=== PATIENT | female | born 1940 | race Caucasian/White ===

== ENCOUNTER 2016-09-22 12:13 | Outpatient (CLI) | payer MEDICARE ==
[2014-05-29 11:20] VITALS: BP 151/62
== END 2016-09-22 12:14 ==
LOC: CARD 12:13
PROVIDERS: ATTEND Nurse Practitioner
DX: E03.9 Hypothyroidism, unspecified (principal); F17.210 Nicotine dependence, cigarettes, uncomplicated; D64.9 Anemia, unspecified; E78.5 Hyperlipidemia, unspecified; I10 Essential (primary) hypertension; I35.0 Nonrheumatic aortic (valve) stenosis
CPT/HCPCS: 93005; G0463

== ENCOUNTER 2016-10-13 08:13 | Outpatient (CLI) | payer MEDICARE ==
[2014-05-29 11:20] VITALS: BP 151/62
[2016-10-13 08:37] LABS: BASOPHILS % 0.8 (0.0-1.5); EOSINOPHILS % 4.2 % (0.0-6.8); MEAN CORPUSCULAR HEMOGLOBIN 25.1 pg (28.0-34.0); MEAN CORPUSCULAR VOLUME 78.2 fl (80.0-100.0); MONOCYTES % 5.4 % (0.0-11.0); NEUTROPHILS # 5.3 # k/uL (1.4-7.7)
[2016-10-13 08:59] LABS: eGFR (African) > 60; eGFR (Non-African) > 60
== END 2016-10-13 08:14 ==
LOC: LAB 08:13
PROVIDERS: ATTEND Internal Medicine Cardiovascular Disease
DX: I10 Essential (primary) hypertension (principal); I35.1 Nonrheumatic aortic (valve) insufficiency; E78.00 Pure hypercholesterolemia, unspecified; R07.2 Precordial pain
CPT/HCPCS: 36415; 80048; 85025

== ENCOUNTER 2016-10-13 11:55 | Inpatient (IN) | payer MEDICARE ==
--- NOTE | 2016-10-13 14:16 | ED Physician Documentation ---
General Adult - HISTORIAN Historian: patient - HPI Stated Complaint: low sodium Chief Complaint: General Adult Additional Information: Told to come in by donya snow of sodium of 116. Asymptomatic. Onset: minutes Timing: still present Severity: moderate Modifying Factors: hemochromatosis Context: chronic medical issues Quality: moderate Further Comments: no - ROS CONST: weakness, other (fatigue) EYES/ENT: none CVS/RESP: none GI/: none MS/SKIN/LYMPH: none NEURO/PSYCH: other (fatigue) - PAST HX Past History: other (hypothyroidism, hematomachrosis, fe deficiency anemia, hyperlipidemia, htn, ) Other History: other (mitral regurgitation) Surgeries/Procedures: other (back surgery, breast surgery, hyst, appy, foot surgery, endoscopy, shoulder surgery) Immunizations: referred to PCP Allergies/Adverse Reactions: Allergies Allergy/AdvReac Type Severity Reaction Status Date / Time No Known Allergies Allergy Verified 10/13/16 12:25 Home Medications: Ambulatory Orders Medication Instructions Recorded Aspirin [Arie] 325 mg PO DAILY 10/13/16 Omeprazole [Omeprazole] 20 mg PO BID 10/13/16 - SOCIAL HX Smoking History: cigarettes Alcohol Use: none Drug Use: none - FAMILY HX Family History: No - VITAL SIGNS Vital Signs: Vital Signs Temp Pulse Resp BP Pulse Ox 97.9 F 86 19 131/47 98 10/13/16 12:30 10/13/16 13:02 10/13/16 12:30 10/13/16 12:30 10/13/16 12:52 - REVIEWED ASSESSMENTS Nursing Assessment Reviewed: Yes Vitals Reviewed: Yes Progress - Results/Orders Results/Orders: pt/ptt/inr, ekg ordered in addition to cbc and cmp already done this am - Progress Progress: pt. stable entire time in er Critical Care Note - Critical Care Note Total Time (mins): 0 ED Results Lab/Radiology - Lab Results Lab Results: Lab Results 10/13/16 12:55 PT 11.0 Seconds Seconds (9.7-11.5) INR 1.0 (0.9-1.1) APTT 28.3 Seconds Seconds (24.5-32.8) - Radiology Radiology Impressions: cxr deferred to admission orders - Orders Orders: ED Orders Category Date Time Status Counter Pocket Sewer [Telemetry] Q30M Care 10/13/16 12:56 Inactive Continuous EKG monitoring Q30M Care 10/13/16 13:02 Active Continuous Pulse Oximetry Q1H Care 10/13/16 12:52 Active Saline Lock [Remove IV/Saline Lock] .PRN Care 10/13/16 12:58 Active Saline Lock [Remove IV/Saline Lock] 1T Care 10/13/16 12:51 Completed Telemetry NOW Care 10/13/16 12:52 Inactive PT-INR Routine Lab 10/13/16 12:55 Completed PTT Routine Lab 10/13/16 12:55 Completed EKG WITH COMPARISON Routine Ther 10/13/16 Ordered EKG WITH COMPARISON Routine Ther 10/13/16 Stop Req Transfer Routine Transfer 10/13/16 Ordered General Adult Physical Exam - PHYSICAL EXAM GENERAL APPEARANCE: no distress EENT: eye inspection normal, ENT inspection normal, pharynx normal, no signs of dehydration, CHRIS NECK: normal inspection, thyroid normal, supple RESPIRATORY: no resp distress, chest non-tender, breath sounds normal CVS: reg rate & rhythm, heart sounds normal, equal pulses ABDOMEN: soft, no organomegaly, normal bowel sounds, no abdominal bruit, no distension, non-tender BACK: normal inspection, no CVA tenderness SKIN: warm/dry, normal color EXTREMITIES: non-tender, normal range of motion, no evidence of injury, no edema NEURO: oriented X3, CN's nml as tested, motor nml, sensation nml, mood/affect nml, cognition normal Discharge Clincal Impression: Hyponatremia Home Medications: Ambulatory Orders Aspirin [Arie] 325 mg PO DAILY 10/13/16 Omeprazole [Omeprazole] 20 mg PO BID 10/13/16 Comments: Case discussed with Dr. Aguilar who accepts pt. Condition: Stable Disposition: ADMITTED INPATIENT Decision to Admit: [id number] Decision Time: 13:30
--- NOTE | 2016-10-13 16:00 | History and Physical Report ---
History of Present Illnes - History of Present Illness Reason for Visit: hyponatremia History of Present Illness: Patient is a 76-year-old white female who had some bloodwork drawn on the day of admission ordered by her delivery sales worker. Patient sodium level came back extremely low at 116. Patient was advised to come to the emergency room. Patient was subsequently admitted to the hospital for further care and treatment of her hyponatremia. - Past Medical History Cardiac: HTN Heme/Onc: Hemochromatosis Psych: Depression Endocrine: Diabetes (type 2), Hypothyroidism Dermatology: Other - Past Surgical History Past Surgical History: Cataract Removal (OU), Other (Left rotator cuff repair, foot surgery) - Past Family History Mother Family History: Cancer (lymphoma), (62yo) Father Family History: (88yo), Other (Parkinson's disease) Sister 1 Family History: Other (epilepsy) Brother 1 Family History: (accident) Brother 2 Family History: None - Past Social History Smoke: No, Quit Alcohol: None Drugs: None Lives: With Family Domestic Violence: Negative - Health Maintenance Health Maintenance: Cholesterol, Influenza Vaccine, Pneumococcal Vaccine (2008) , Mammogram (2015), Colonoscopy (2016) Influenza Vaccine: Current for this Influenza Season Pneumonia Vaccine: Yes (Needs prevnar 13) Resuscitation Status: full code - Unable to Obtain History Unable to Obtain: No Review of Systems - Review of Systems Constitutional: Weakness, Malaise. negative: Fever, Chills Eyes: negative: pain, vision change, eyelid inflammation ENT: negative: Ear Pain, Ear Discharge Respiratory: negative: Cough, Dry, Shortness of Breath, Hemoptysis, SOB with Excertion, Pleuritic Pain, Sputum, Wheezing Cardiovascular: negative: Chest Pain, Palpitations, Orthopnea, Paroxysmal Noc. Dyspnea, Light Headedness Gastrointestinal: negative: Nausea, Vomiting, Abdominal Pain, Diarrhea, Constipation, Melena, Hematochezia Genitourinary: negative: Dysuria, Frequency, Incontinence Musculoskeletal: Neck Pain Skin: negative: Rash, Lesions Neurological: negative: Weakness, Numbness, Incoordination, Change in Speech, Confusion - Medications/Allergies Allergies/Adverse Reactions: Allergies Allergy/AdvReac Type Severity Reaction Status Date / Time No Known Allergies Allergy Verified 10/13/16 12:25 Home Medications: Home Medications Aspirin [Arie] 325 mg PO DAILY 10/13/16 Omeprazole 20 mg PO BID 10/13/16 Exam - Exam Vital Signs: Vital Signs (72 hours) 10/13/16 14:17 Temperature 97.9 F Pulse Rate [ 80 Pulse ox] Respiratory 18 Rate Blood Pressure 118/52 [Left Arm] O2 Sat by Pulse 97 Oximetry General: Alert, Oriented to Person, Oriented to Place, Oriented to Time, Cooperative, Obese HEENT: Atraumatic, PERRLA, EOMI, Mouth Mucous membr. moist/[place], Nose Mucous membr. moist/[place], Edentulous Neck: Normal Range of Motion Carotids: WNL Thyroid: WNL Lungs: Clear to auscultation, Normal air movement, Speaks full Sentences Cardiovascular: Regular rate, Normal S1, Normal S2, No murmurs Abdomen: Normal bowel sounds, Soft, No tenderness, No hepatospenomegaly, No masses Integumentary: Normal, [place], Warm, Dry Extremities: No clubbing, No cyanosis, No edema, Normal pulses, No tenderness/ swelling Neurological: Normal gait, Normal speech, Strength Equal Bilat, Normal tone, Sensation intact, Cranial nerves 3-12 NL, Reflexes 2+ Psych/Mental Status: Mental status NL, Mood NL, Appropriate Affect, Intact Judgment Assessment/Plan - Assessment/Plan (1) Hyponatremia Status: Acute Plan: will start NS IV and lasix. Will moitor Na level, Will start fluid restriciton (2) Hemochromatosis Status: Acute Assessment: stable (3) Essential hypertension Status: Acute Assessment: continue with home meds (4) Diabetes type 2, controlled Status: Chronic Qualifiers: Diabetes mellitus complication status: without complication Assessment: continue with home meds VTE Assessment - RISK FACTOR SCORE VTE RISK FACTOR SCORES: AGE OVER 60 YEARS, ANTICIPATED BED CONFINEMENT OR IMMOBILIZATION > 24 HOURS - RISK VTE MODERATE RISK: SCORE OF 2 (RISK PROXIMAL DVT 2-4%) PROPHYAXIS NEEDED
[2016-10-13] MEDS ORDERED: ATORVASTATIN CALCIUM 80 MG TABLET PO ONE (16:24)
[2016-10-13] MEDS ORDERED: 0.9 % SODIUM CHLORIDE 1,000 ML IV ONE (16:24)
[2016-10-13] MEDS: 0.9 % SODIUM CHLORIDE 1,000 ML IV SCH (16:30)
[2016-10-13] MEDS: ENOXAPARIN SODIUM 30 MG/0.3 ML DISP.SYRIN SQ SCH (16:30)
[2016-10-13 17:12] VITALS: BMI 29.0
[2016-10-13 20:10] LABS: APPEARANCE,URINE CLEAR (CLEAR); COLOR,URINE YELLOW (YELLOW)
[2016-10-13] MEDS: DIAZEPAM 5 MG TABLET PO PRN (20:10)
[2016-10-13 20:11] LABS: OCCULT BLOOD,URINE INTACT (NEGATIVE); UROBILINOGEN URINE 0.2 Eu (0.2-1.0)
[2016-10-13] MEDS: ATORVASTATIN CALCIUM 80 MG TABLET PO SCH (20:11)
[2016-10-13] MEDS: FUROSEMIDE 20 MG/2 ML VIAL IVP SCH (22:39)
--- NOTE | 2016-10-14 00:48 | Diagnostic Imaging Report ---
[facility]~ [facility] [address] [facility] [address] [place] [address]. [phone] ~ ~ ~ ~ Report Submission Date: October 13, 2016 3:24:17 PM CDT Patient ~ Study Name: FRANCINE VICKERS ~ Date: October 13, 2016 2:21:08 PM CDT ~ Modality Type: CR Gender: F ~ Description: CHEST : 42 ~ Institution: [facility] Physician: [facility] ~ ~ ~ ~ Chest - one-view Clinical history: ~Hyponatremia. Findings: ~Examination of the chest in single portable AP view 10/13/2016 1421 hours with no prior films for comparison demonstrates prominence of the right hilum and right paratracheal soft tissues. ~This may represent infiltrate, but the possibility of a mass cannot be excluded. ~CT is recommended for better evaluation when the patient is able. ~Cardiac silhouette is within normal limits. ~The aorta is atherosclerotic. ~Calcification is evident in the mitral valve annulus. ~Degenerative changes are present in the shoulders with postoperative changes in the thoracic spine. Impression: 1. ~Right hilar and right paratracheal fullness. ~Rule out underlying mass or adenopathy. 2. ~Postop thoracic spinal stabilization surgery. 3. ~Aortic atherosclerosis. ~ Electronically signed on October 13, 2016 3:24:17 PM CDT by: Gregory TOVAR
[2016-10-14] MEDS ORDERED: 0.9 % SODIUM CHLORIDE 1,000 ML IV ONE (02:11)
[2016-10-14] MEDS: LEVOTHYROXINE SODIUM 25 MCG TABLET PO SCH (05:42)
[2016-10-14] MEDS: PANTOPRAZOLE SODIUM 40 MG TABLET PO SCH (05:42)
[2016-10-14] MEDS: 0.9 % SODIUM CHLORIDE 1,000 ML IV SCH ×2 (05:52→17:20)
[2016-10-14 06:52] LABS: eGFR (African) > 60; eGFR (Non-African) > 60
[2016-10-14] MEDS: GLIMEPIRIDE 2 MG TABLET PO SCH (07:57)
[2016-10-14] MEDS: CITALOPRAM HYDROBROMIDE 20 MG TABLET PO SCH (08:33)
[2016-10-14] MEDS: ASPIRIN 325 MG TABLET PO SCH (08:33)
[2016-10-14] MEDS: LOSARTAN POTASSIUM 50 MG TABLET PO SCH (08:33)
[2016-10-14] MEDS: ONGLYZA 5 MG PO SCH (08:34)
[2016-10-14] MEDS ORDERED: TRIAMCINOLONE CREAM 0.1% 15GM TUBE TP PRN (08:48)
[2016-10-14] MEDS ORDERED: HYDROCHLOROTHIAZIDE 25 MG TABLET PO SCH (09:00)
[2016-10-14] MEDS ORDERED: SAXAGLIPTIN HCL 5 MG PO SCH (09:00)
[2016-10-14] MEDS: FUROSEMIDE 20 MG/2 ML VIAL IVP SCH ×2 (09:36→20:57)
[2016-10-14] MEDS ORDERED: ATORVASTATIN CALCIUM 80 MG TABLET PO ONE (13:51)
[2016-10-14] MEDS: ENOXAPARIN SODIUM 30 MG/0.3 ML DISP.SYRIN SQ SCH (15:50)
--- NOTE | 2016-10-14 16:17 | Diagnostic Imaging Report ---
VALERIE OSBORNE~ [facility] [address] [facility] [address] [address] ~ ~ ~ ~ Report Submission Date: October 14, 2016 10:03:53 AM CDT Patient ~ Study Name: FRANCINE VICKERS ~ Date: October 14, 2016 9:06:46 AM CDT ~ Modality Type: CR Gender: F ~ Description: SHOULDER : 42 ~ Institution: [facility] Physician: VALERIE OSBORNE ~ ~ ~ ~ Left shoulder -two views CLINICAL HISTORY: ~ Fall approximately 1 month ago. ~Pain and decreased range of motion. FINDINGS: ~ Examination of the left shoulder in AP and transscapular Y-views demonstrates postoperative changes in the proximal humerus. ~There is no evidence of acute fracture or dislocation and no lytic or blastic lesion. IMPRESSION: ~ Remote postoperative changes. ~ No fracture. ~ Electronically signed on October 14, 2016 10:03:53 AM CDT by: Gregory TOVAR
[2016-10-14] MEDS: DIAZEPAM 5 MG TABLET PO PRN (19:32)
[2016-10-14] MEDS: ATORVASTATIN CALCIUM 80 MG TABLET PO SCH (19:33)
[2016-10-14] MEDS: ZOLPIDEM TARTRATE 5 MG TABLET PO PRN (19:33)
[2016-10-15] MEDS ORDERED: 0.9 % SODIUM CHLORIDE 1,000 ML IV ONE (02:03)
[2016-10-15] MEDS: 0.9 % SODIUM CHLORIDE 1,000 ML IV SCH ×2 (02:11→11:00)
[2016-10-15] MEDS: PANTOPRAZOLE SODIUM 40 MG TABLET PO SCH (05:35)
[2016-10-15] MEDS: LEVOTHYROXINE SODIUM 25 MCG TABLET PO SCH (05:35)
[2016-10-15 06:24] LABS: eGFR (African) > 60; eGFR (Non-African) > 60
[2016-10-15] MEDS: GLIMEPIRIDE 2 MG TABLET PO SCH (07:22)
[2016-10-15] MEDS: FUROSEMIDE 20 MG/2 ML VIAL IVP SCH ×2 (08:33→20:41)
[2016-10-15] MEDS: LOSARTAN POTASSIUM 50 MG TABLET PO SCH (08:34)
[2016-10-15] MEDS: ASPIRIN 325 MG TABLET PO SCH (08:34)
[2016-10-15] MEDS: ONGLYZA 5 MG PO SCH ×2 (08:34→08:57)
[2016-10-15] MEDS: CITALOPRAM HYDROBROMIDE 20 MG TABLET PO SCH (08:34)
[2016-10-15] MEDS ORDERED: ATORVASTATIN CALCIUM 80 MG TABLET PO ONE (09:24)
[2016-10-15] MEDS: DIAZEPAM 5 MG TABLET PO PRN ×2 (11:04→20:15)
[2016-10-15] MEDS: ENOXAPARIN SODIUM 30 MG/0.3 ML DISP.SYRIN SQ SCH (16:01)
[2016-10-15] MEDS: ATORVASTATIN CALCIUM 80 MG TABLET PO SCH (20:12)
[2016-10-15] MEDS: ZOLPIDEM TARTRATE 5 MG TABLET PO PRN (20:19)
[2016-10-16] MEDS: 0.9 % SODIUM CHLORIDE 1,000 ML IV SCH (03:21)
[2016-10-16] MEDS: LEVOTHYROXINE SODIUM 25 MCG TABLET PO SCH (05:46)
[2016-10-16] MEDS: PANTOPRAZOLE SODIUM 40 MG TABLET PO SCH (05:46)
[2016-10-16] MEDS: GLIMEPIRIDE 2 MG TABLET PO SCH (07:15)
[2016-10-16 08:07] VITALS: BP 125/70
[2016-10-16 08:12] LABS: eGFR (African) > 60; eGFR (Non-African) > 60
[2016-10-16] MEDS: ASPIRIN 325 MG TABLET PO SCH (08:21)
[2016-10-16] MEDS: LOSARTAN POTASSIUM 50 MG TABLET PO SCH (08:21)
[2016-10-16] MEDS: ONGLYZA 5 MG PO SCH (08:21)
[2016-10-16] MEDS: CITALOPRAM HYDROBROMIDE 20 MG TABLET PO SCH (08:21)
[2016-10-16] MEDS ORDERED: ENOXAPARIN SODIUM 30 MG/0.3 ML DISP.SYRIN SQ SCH (09:00)
[2016-10-16] MEDS: FUROSEMIDE 20 MG/2 ML VIAL IVP SCH (09:24)
--- NOTE | 2016-11-06 09:52 | Discharge Summary ---
Discharge Summary - Discharge Sumary History of Present Illness: Patient is a 76-year-old white female who had some bloodwork drawn on the day of admission ordered by her maternal fetal physician. Patient sodium level came back extremely low at 116. Patient was advised to come to the emergency room. Patient was subsequently admitted to the hospital for further care and treatment of her hyponatremia. Condition at Discharge: Stable Home Medications: Ambulatory Orders Medication Instructions Recorded Aspirin [Arie] 325 mg PO DAILY 10/13/16 Omeprazole 20 mg PO BID 10/13/16 Furosemide [Lasix] 20 mg PO DAILY PRN #30 tablet 10/16/16 Triamcinolone Acetonide 0.1% 1 appl TP BID PRN #80 gm 10/16/16 [Kenalog] Consultations this Visit: None Procedures this Visit: None Allergies/Adverse Reactions: Allergies Allergy/AdvReac Type Severity Reaction Status Date / Time No Known Allergies Allergy Verified 10/13/16 12:25 Discharge Summary: Patient was started on IV fluids of normal saline and started on fluid restrictions by mouth. Patient did have some slow improvement in her sodium level and at the time of discharge it is approved to 123. Patient did remain fairly asymptomatic throughout the hospitalization. Exact etiology of her hyponatremia is unknown. It was felt to be possibly related to some of the medications that she was taking. Medications were adjusted. - Final Diagnosis (1) Hyponatremia Problems: improved (2) Hemochromatosis Problems: stable (4) Diabetes type 2, controlled Problems: stable
--- NOTE | 2016-12-26 11:43 | Inpatient Progress Note ---
Subjective - Required Recertification Statement I anticipate X number of days because-include discharge plan: patient states she is been doing well over the last 24 hours. Patient denie - Review of Systems Subjective: Patient states she is been doing well over the last 24 hours. Patient denies any chest pain or chest pressure. Blood sugars have been stable. Objective - Exam Vitals and I&O: Vital Signs Temp 98 F 10/16/16 10:28 Pulse 70 10/16/16 10:28 Resp 16 10/16/16 10:28 BP 125/70 10/16/16 10:28 Pulse Ox 97 10/16/16 11:00 General: Alert, Oriented to Person, Oriented to Place, Cooperative Neck: Supple Lungs: Clear to auscultation, Normal air movement, Speaks full Sentences. No: Wheezes, Rales Cardiovascular: Regular rate, Normal S1, Normal S2 Abdomen: Normal bowel sounds, Soft, No tenderness Extremities: No clubbing, No cyanosis, No edema Skin: Normal, [place] - Results Results: Laboratory Results PT 11.0 Seconds (9.7-11.5) 10/13/16 12:55 INR 1.0 (0.9-1.1) 10/13/16 12:55 APTT 28.3 Seconds (24.5-32.8) 10/13/16 12:55 Sodium 123 mmol/L (136-145) L 10/16/16 07:50 Potassium 3.4 mmol/L (3.5-5.0) L 10/16/16 07:50 Chloride 93 mmol/L (98-110) L 10/16/16 07:50 Carbon Dioxide 30 mmol/L (20-32) 10/16/16 07:50 BUN 8 mg/dL (10-26) L 10/16/16 07:50 Creatinine 0.7 mg/dL (0.4-1.5) 10/16/16 07:50 Estimated Creat Clear 90 10/16/16 07:50 Est GFR ( Amer) > 60 (60-) 10/16/16 07:50 Est GFR (Non-Af Amer) > 60 (60-) 10/16/16 07:50 Glucose 136 mg/dL (70-99) H 10/16/16 07:50 Calcium 7.6 mg/dL (8.5-10.5) L 10/16/16 07:50 Urine Color Yellow (YELLOW) 10/13/16 20:05 Urine Appearance Clear (CLEAR) 10/13/16 20:05 Urine pH 6.0 (5.0 - 8.0) 10/13/16 20:05 Ur Specific [place] 1.015 (1.010-1.030) 10/13/16 20:05 Urine Protein Negative mg/dL (NEGATIVE) 10/13/16 20:05 Urine Ketones Negative mg/dL (NEGATIVE) 10/13/16 20:05 Urine Occult Blood Intact (NEGATIVE) 10/13/16 20:05 Urine Nitrite Negative (NEGATIVE) 10/13/16 20:05 Urine Bilirubin Negative (NEGATIVE) 10/13/16 20:05 Urine Urobilinogen 0.2 Eu (0.2-1.0) 10/13/16 20:05 Ur Leukocyte Esterase 2+ (NEGATIVE) H 10/13/16 20:05 Urine Glucose Negative mg/dL (NEGATIVE) 10/13/16 20:05 Assessment/Plan - Assessment/Plan (1) Hyponatremia Assessment: Sodium level has improved slightly. Patient remains asymptomatic. (2) Hemochromatosis Status: Acute (3) Essential hypertension Status: Acute (4) Diabetes type 2, controlled Status: Chronic Qualifiers: Diabetes mellitus complication status: without complication
--- NOTE | 2016-12-26 11:51 | Inpatient Progress Note ---
Subjective - Required Recertification Statement I anticipate X number of days because-include discharge plan: 1 - Review of Systems Events since last encounter: Patient continued to do well. Patient voices no complaints at this time. Blood sugars remains stable. Subjective: Patient states she is been doing well over the last 24 hours. Patient denies any chest pain or chest pressure. Blood sugars have been stable. Objective - Exam Vitals and I&O: Vital Signs Temp 98 F 10/16/16 10:28 Pulse 70 10/16/16 10:28 Resp 16 10/16/16 10:28 BP 125/70 10/16/16 10:28 Pulse Ox 97 10/16/16 11:00 General: Alert, Oriented to Person, Oriented to Place, Oriented to Time, Cooperative Lungs: Clear to auscultation Cardiovascular: Regular rate, Normal S1, Normal S2, No murmurs Abdomen: Normal bowel sounds, Soft Skin: Normal, [place], Warm, Dry Neurological: Normal gait, Normal speech - Results Results: Laboratory Results PT 11.0 Seconds (9.7-11.5) 10/13/16 12:55 INR 1.0 (0.9-1.1) 10/13/16 12:55 APTT 28.3 Seconds (24.5-32.8) 10/13/16 12:55 Sodium 123 mmol/L (136-145) L 10/16/16 07:50 Potassium 3.4 mmol/L (3.5-5.0) L 10/16/16 07:50 Chloride 93 mmol/L (98-110) L 10/16/16 07:50 Carbon Dioxide 30 mmol/L (20-32) 10/16/16 07:50 BUN 8 mg/dL (10-26) L 10/16/16 07:50 Creatinine 0.7 mg/dL (0.4-1.5) 10/16/16 07:50 Estimated Creat Clear 90 10/16/16 07:50 Est GFR ( Amer) > 60 (60-) 10/16/16 07:50 Est GFR (Non-Af Amer) > 60 (60-) 10/16/16 07:50 Glucose 136 mg/dL (70-99) H 10/16/16 07:50 Calcium 7.6 mg/dL (8.5-10.5) L 10/16/16 07:50 Urine Color Yellow (YELLOW) 10/13/16 20:05 Urine Appearance Clear (CLEAR) 10/13/16 20:05 Urine pH 6.0 (5.0 - 8.0) 10/13/16 20:05 Ur Specific [place] 1.015 (1.010-1.030) 10/13/16 20:05 Urine Protein Negative mg/dL (NEGATIVE) 10/13/16 20:05 Urine Ketones Negative mg/dL (NEGATIVE) 10/13/16 20:05 Urine Occult Blood Intact (NEGATIVE) 10/13/16 20:05 Urine Nitrite Negative (NEGATIVE) 10/13/16 20:05 Urine Bilirubin Negative (NEGATIVE) 10/13/16 20:05 Urine Urobilinogen 0.2 Eu (0.2-1.0) 10/13/16 20:05 Ur Leukocyte Esterase 2+ (NEGATIVE) H 10/13/16 20:05 Urine Glucose Negative mg/dL (NEGATIVE) 10/13/16 20:05 Assessment/Plan - Assessment/Plan (1) Hyponatremia Assessment: improved (2) Hemochromatosis Status: Acute (3) Essential hypertension Status: Acute (4) Diabetes type 2, controlled Status: Chronic Qualifiers: Diabetes mellitus complication status: without complication Assessment: stable
== END 2016-10-16 12:25 | disposition home or self-care (01) | DRG 642 ==
LOC: ED 11:55 → SOUTH 13:57
PROVIDERS: ADMIT Family Medicine; ATTEND Family Medicine
DX: E83.119 Hemochromatosis, unspecified (principal); E87.1 Hypo-osmolality and hyponatremia; E11.9 Type 2 diabetes mellitus without complications
CPT/HCPCS: 36415; 71010; 73010; 80048; 81002; 85610; 85730; 93005; A9270; J1650; J1940; J7030; 85025; 96361; 96374; 99222; 99232; 99238; 99284; S1016

== ENCOUNTER 2016-10-19 08:51 | Outpatient (CLI) | payer MEDICARE ==
[2016-10-19 09:32] LABS: eGFR (African) > 60; eGFR (Non-African) > 60
== END 2016-10-19 08:52 ==
LOC: LAB 08:51
PROVIDERS: ATTEND Family Medicine
DX: E87.1 Hypo-osmolality and hyponatremia (principal)
CPT/HCPCS: 36415; 80048

== ENCOUNTER 2017-04-03 09:17 | Outpatient (CLI) | payer MEDICARE | END 2017-04-03 10:00 | LOC: LAB 09:17 | PROVIDERS: ATTEND Family Medicine | DX: E03.9 Hypothyroidism, unspecified (principal) | CPT/HCPCS: 36415; 84443 ==